=== PATIENT | female | born 1960 | race African-American/Black ===

== ENCOUNTER 2021-11-29 04:55 | Emergency (ER) | payer MEDICAID, OTHER ==
[~2021-11-29] VITALS: Ht 167.6 cm; Wt 68.0 kg
[2021-11-29] MEDS ORDERED: SODIUM CHLORIDE 0.9% 1,000 ML IV ONE (05:45)
[2021-11-29 05:51] LABS: CHLORIDE 104 mEq/L (98-107)
[2021-11-29 05:59] LABS: BASOPHILS % 1.2 % (0.0-2.0); EOSINOPHILS % 1.6 % (0.0-5.0); HEMATOCRIT. 37.3 % (36.0-48.0); HEMOGLOBIN. 12.4 g/dL (12.0-16.0); LYMPHOCYTES % 47.5 % (20.0-50.0); MEAN CORPUSCULAR HEMOGLOBIN 28.5 pg (28.0-32.0); MEAN CORPUSCULAR VOLUME 85.9 fL (81.0-99.0); MEAN PLATELET VOLUME 8.6 fl (7.4-10.4); MONOCYTES % 11.3 % (2.0-8.0); NEUTROPHILS % 38.4 % (40.0-76.0); PLATELET 224 x1000/uL (130-400); RED BLOOD CELL COUNT 4.34 mill/uL (4.2-5.4); RED CELL DISTRIBUTION WIDTH 12.8 % (11.6-14.6)
[2021-11-29 06:11] LABS: CLARITY URINE CLEAR (CLEAR); COLOR URINE YELLOW (YELLOW); KETONES URINE NEGATIVE (NEGATIVE); LEUKOCYTE ESTERASE URINE NEGATIVE (NEGATIVE); NITRITE URINE NEGATIVE (NEGATIVE); OCCULT BLOOD URINE TRACE (NEGATIVE); PROTEIN URINE NEGATIVE (NEGATIVE); SPECIFIC GRAVITY URINE 1.003 (1.005-1.030); UROBILINOGEN URINE 0.2 E.U./dL (0.2-1.0)
[2021-11-29] MEDS ORDERED: BARIUM SULFATE 176 GM SUSP.RECON ONE (07:25)
[2021-11-29] MEDS ORDERED: EZ-HD SUSPENSION(BARIUM SULFATE 340GM) PO ONE (07:26)
[2021-11-29 08:15] VITALS: BP 127/77
== END 2021-11-29 10:06 | disposition home or self-care (01) ==
LOC: ER 05:05
DX: R13.10 Dysphagia, unspecified (principal)
CPT/HCPCS: 36415; 71045; 74220; 80053; 81003; 83690; 85025; 96360; 99284; J7030; Z7610